=== PATIENT | female | born 1980 | race Caucasian/White ===

== ENCOUNTER 2021-02-08 11:23 | Emergency (ER) | payer MEDICAID ==
[~2021-02-08] VITALS: Ht 149.9 cm; Wt 65.8 kg
[2021-02-08 11:50] VITALS: BP_SYST 141
[2021-02-08] MEDS ORDERED: ONDANSETRON 4 MG ODT TAB PO ONE (14:30)
--- NOTE | 2021-02-08 15:00 | NUR ---
Patient to ER TRIAGE to gown for evaluation. Side rails up.
--- NOTE | 2021-02-08 15:02 | NUR ---
ER at bedside examining patient.
--- NOTE | 2021-02-08 15:03 | NUR ---
PT PRESENTS TO ED C/O HOUSE AND DEPELETED RX.
[2021-02-08] MEDS ORDERED: AMLO5TAB4 PO (15:04)
[2021-02-08] MEDS ORDERED: CITA40TA22 PO (15:04)
[2021-02-08 15:11] VITALS: BP_SYST 142
--- NOTE | 2021-02-08 15:11 | NUR ---
Patient given written and verbal discharge instructions and verbalizes understanding. ER MD discussed with patient the results and treatment provided. Patient in stable condition. ID arm band removed. Rx of NORTITOCELEXA given. Patient educated on pain management and to follow up with PMD. Pain Scale 3. Opportunity for questions provided and answered. Medication side effect fact sheet provided.
== END 2021-02-08 15:11 | disposition home or self-care (01) ==
LOC: SED 11:23
DX: I10 Essential (primary) hypertension (principal); R51.9 Headache, unspecified; R42 Dizziness and giddiness; Z76.0 Encounter for issue of repeat prescription
CPT/HCPCS: 99281

== ENCOUNTER 2022-06-05 15:04 | Emergency (ER) | payer MEDICAID ==
[~2022-06-05] VITALS: Ht 149.9 cm; Wt 66.7 kg
[~2022-06-05 15:04] MED LIST: AMLO5TAB4 PO; CITA40TA22 PO; NAPR-690 PO
[2022-06-05 15:25] VITALS: BP_SYST 129
--- NOTE | 2022-06-05 15:30 | NUR ---
Patient triaged and placed in waiting room. VSS and patient appears in no acute distress at this time. Accompanied by FAMILY, awaiting available bed, and MD notified of need for MSE.
[2022-06-05 15:52] VITALS: BP_SYST 129
--- NOTE | 2022-06-05 16:00 | NUR ---
Pt presents to the ER brought in by friend. Pt chief complaint nausea and vomiting for 2 DAYS.Pt is aaox3 skin dry and intact, Denies diarrhea. Pt breaths even and unlabored. Pt states headache and general discomfort.
[2022-06-05] MEDS ORDERED: METOCLOPRAMIDE HCL 10 MG/2 ML VIAL IVP ONE (16:15)
[2022-06-05] MEDS ORDERED: MECLIZINE HCL 25 MG TABLET (ANITVERT) PO ONE (16:15)
[2022-06-05 17:06] LABS: BASOPHILS % (AUTO) 0.1 % (0.0-2.0); EOSINOPHILS % (AUTO) 0.2 % (0.0-4.0); HEMATOCRIT 35.2 % (36-48); HEMOGLOBIN 12.1 g/dL (12.0-16.0); LYMPHOCYTES # (AUTO) 0.3 K/uL (1.0-5.5); LYMPHOCYTES % (AUTO) 2.8 % (20.5-51.5); MEAN CORPUSCULAR HEMOGLOBIN 31 pg (27-31); MEAN CORPUSCULAR HGB CONC 34 % (32-36); MEAN CORPUSCULAR VOLUME 90 fL (79.0-98.0); MONOCYTES # (AUTO) 0.8 K/uL (0.0-1.0); MONOCYTES % (AUTO) 6.8 % (1.7-9.3); NEUTROPHILS % (AUTO) 90.1 % (40.0-70.0); PLATELET COUNT (AUTO) 314 K/uL (130-430); RED BLOOD CELL COUNT(AUTO) 3.91 MIL/uL (4.2-6.2); RED CELL DISTRIBUTION WIDTH 12.7 % (9.0-15.0); WHITE BLOOD COUNT (AUTO) 12.2 K/uL (4.8-10.8)
[2022-06-05 17:11] LABS: ANION GAP 16 (5-15); CALCIUM 9.3 mg/dL (8.4-11.0); CHLORIDE 101 mmol/L (98-107); CREATININE 0.81 mg/dL (0.55-1.30); GLUCOSE 104 mg/dL (70-99); UREA NITROGEN, BLOOD 10 mg/dL (8-21)
[2022-06-05 17:15] LABS: GFR AFRICAN AMERICAN 99 mL/min (>90)
[2022-06-05 17:18] LABS: ALANINE AMINOTRANSFERASE 20 U/L (12-78); ALBUMIN 4.2 g/dL (3.4-4.8); ASPARTATE AMINOTRANSFERASE 18 U/L (10-37); TOTAL BILIRUBIN 0.4 mg/dL (0.0-1.0)
--- NOTE | 2022-06-05 17:19 | NUR ---
Patient does not wish to proceed with medical care recommended by MD DESAI. Patient given information related to possible complications, up to and including , which could occur as a result of leaving hospital at this time. Patient verbalizes understanding of risks involved leaving against medical advice. Patient has signed AMA form.
== END 2022-06-05 17:10 | disposition left against medical advice (07) ==
LOC: SED 15:04
DX: R42 Dizziness and giddiness (principal); R51.9 Headache, unspecified; R11.2 Nausea with vomiting, unspecified; I10 Essential (primary) hypertension; Z79.899 Other long term (current) drug therapy
CPT/HCPCS: 99284; 96374; 80053; 82550; 85025; 84484; 36415; 93005; 81025; J8597; J2765